=== PATIENT | male | born 1960 ===

== ENCOUNTER 2017-08-16 06:37 | Inpatient (IN) | payer BC, OTHER ==
[2017-08-16 06:38] VITALS: BMI 28.3
[2017-08-16 07:28] LABS: BASO # 0.01 K/mm3 (0.0-2.0); BASO % 0.1 % (0.0-3.0); EOS # 0.2 (0.0-0.7); EOS % 2.1 % (1.5-5.0); GRAN # 5.77 (1.4-6.5); GRAN % 68.9 % (50.0-68.0); HEMATOCRIT 37.2 % (42.0-52.0); LYMPH # 1.9 (1.2-3.4); LYMPH % 22.1 % (22.0-35.0); MEAN CELL VOLUME 89.9 fl (80.0-105.0); MEAN CORPUSCULAR HEMOGLOBIN 29.7 pg (25.0-35.0); MEAN CORPUSCULAR HGB CONC 33.1 g/dl (31.0-37.0); MONO # 0.6 (0.1-0.6); MONO % 6.8 % (1.0-6.0); RED CELL DISTRIBUTION WIDTH 13.7 % (11.5-14.5); WHITE BLOOD COUNT 8.4 10^3/ul (4.5-11.0)
[2017-08-16 07:38] LABS: INR 1.08 (0.93-1.08); PARTIAL THROMBOPLASTIN TIME 26.4 Seconds (23.7-30.8)
[2017-08-16 07:39] LABS: ALB/GLOB RATIO 1.3 (1.1-1.8); ALKALINE PHOSPHATASE 74 U/L (38-126); ALT/SGPT 55 U/L (7-56); AMYLASE 103 U/L (35-125); AST/SGOT 43 U/L (17-59); BILIRUBIN,TOTAL 0.9 mg/dL (0.2-1.3); BLOOD UREA NITROGEN 24 mg/dL (7-21); CALCIUM 9.3 mg/dL (8.4-10.5); CARBON DIOXIDE 28 mmol/L (21-33); CHLORIDE 104 mmol/L (98-107); GFR AFRICAN-AMERICAN > 60; GLUCOSE,RANDOM 119 mg/dL (70-110); LIPASE 209 U/L (23-300); POTASSIUM 4.5 mmol/L (3.6-5.0); SODIUM 142 mmol/L (132-148); TOTAL PROTEIN 7.5 g/dL (5.8-8.3)
--- NOTE | 2017-08-16 07:49 | ED PDOC ---
Arrival/HPI - General Chief Complaint: Chest Pain Time Seen by Provider: 08/16/17 07:01 Historian: Patient - History of Present Illness Narrative History of Present Illness (Text): 08/16/17 07:18 A 57 year old male, whose past medical history includes hypertension, presents to the emergency department complaining of intermittent, central, pressure-like chest pain. [place] [facility] [place] due to similar symptom but was of a different discomfort. Stress test resulted in normal findings. Patient states earlier today while he was awake, he began experiencing symptom and drove to the ER. However, symptom resolved before reaching hospital, so he went back home. Later on, is awoken by the chest discomfort and calls the ambulance. He mentions the pain resolved while on his way her in the ambulance and currently does not experience symptom at this time. Patient notes chest pain comes and goes, usually only occurring while he is at home during evenings but never at work. He also does not experience it when eating or drinking. Patient reports he has experienced mild chest pain in the past and has taken Tums for it, but this is much worse. Patient notes also experiencing nausea and sweating, but denies of any abdominal pain, chest pain, neck pain, shortness of breath, urinary output changes, leg swelling, or any other complaints. Also, patient mentions drinking four beers last night prior to symptoms occurring. PMD: Dr. Yandel Draper Time/Duration: Prior to Arrival Symptom Onset: Sudden Symptom Course: Intermittent Quality: Pressure Context: Home Past Medical History - Provider Review Nursing Documentation Reviewed: Yes - Infectious Disease Hx of Infectious Diseases: None - Cardiac Hx Cardiac Disorders: Yes Hx Hypertension: Yes Hx Pacemaker: No - Pulmonary Hx Respiratory Disorders: Yes Hx Emphysema: Yes - Neurological Hx Neurological Disorder: No - HEENT Hx HEENT Disorder: No - Renal Hx Renal Disorder: No - Endocrine/Metabolic Hx Endocrine Disorders: No - Hematological/Oncological Hx Blood Disorders: No - Integumentary Hx Dermatological Disorder: No - Musculoskeletal/Rheumatological Hx Falls: No - Gastrointestinal Hx Gastrointestinal Disorders: No - Genitourinary/Gynecological Hx Genitourinary Disorders: No - Psychiatric Hx Psychophysiologic Disorder: No Hx Emotional Abuse: No Hx Physical Abuse: No Hx Substance Use: No - Anesthesia Hx Anesthesia Reactions: No Hx Malignant Hyperthermia: No - Suicidal Assessment Feels Threatened In Home Enviroment: No Family/Social History - Physician Review Nursing Documentation Reviewed: Yes Family/Social History: No Known Family HX Smoking Status: Light Smoker < 10 Cigarettes Daily Hx Alcohol Use: No Hx Substance Use: No Allergies/Home Meds Allergies/Adverse Reactions: Allergies No Known Allergies Allergy (Verified 11/07/16 09:51) Home Medications: Home Meds Medication Instructions Recorded Confirmed Atorvastatin Calcium [Lipitor] 10 mg PO DAILY 11/16/15 08/16/17 amLODIPine [Norvasc] 5 mg PO DAILY 11/16/15 08/16/17 Aspirin [Ecotrin] 81 mg PO DAILY 12/17/15 08/16/17 Umeclidinium Brm/Vilanterol Tr 1 inh INH DAILY 11/07/16 08/16/17 [Anoro Ellipta 62.5-25 Mcg INH] Sacubitril/Valsartan [Entresto 24 1 tab PO BID 12/14/16 08/16/17 mg-26 mg Tablet] Review of Systems - Review of Systems Constitutional: Night Sweats Respiratory: absent: SOB Cardiovascular: Chest Pain (intermittent, central, pressure-like) Gastrointestinal: Nausea. absent: Abdominal Pain Musculoskeletal: absent: Back Pain, Neck Pain, Other (no leg swelling) Physical Exam - Physical Exam Narrative Physical Exam (Text): Head: Atraumatic. Normocephalic. Eyes: PERRL. EOMI. Conjunctivae are not pale. ENT: Mucous membranes are moist and intact. Oropharynx is clear and symmetric. Neck: Supple. Full ROM. No JVD. No lymphadenopathy. Cardiovascular: Regular rate. Regular rhythm. No murmurs, rubs, or gallops. Distal pulses are 2+ and symmetric. Pulmonary/Chest: No evidence of respiratory distress. Clear to auscultation bilaterally. No wheezing, rales or rhonchi. Abdominal: Soft and non-distended. There is no tenderness. No rebound, guarding, or rigidity. No organomegaly. Good bowel sounds. Back: No CVA tenderness. Extremities: No edema. No cyanosis. No clubbing. Full range of motion in all extremities. No calf tenderness. Skin: Skin is warm and dry. No petechiae. No purpura. Neurological: Alert, awake, and oriented to person, place, time, and situation. Normal speech. Psychiatric: Good eye contact. Normal interaction, affect, and behavior. Vital Signs Reviewed: Yes Vital Signs Temp Pulse Resp BP Pulse Ox 08/16/17 16:00 57 L 15 148/82 99 08/16/17 14:00 56 L 12 122/55 L 99 08/16/17 12:00 62 17 123/58 L 98 08/16/17 11:40 60 16 136/79 08/16/17 10:15 60 16 136/79 97 08/16/17 08:32 73 16 136/77 99 08/16/17 07:15 63 18 146/86 97 08/16/17 06:47 97.9 F 64 16 140/66 96 Temperature: Afebrile Blood Pressure: Normal Pulse: Regular Respiratory Rate: Normal Appearance: Positive for: Well-Appearing Pain Distress: None Mental Status: Positive for: Alert and Oriented X 3 Medical Decision Making ED Course and Treatment: 08/16/17 07:25 Impression: 57 year old male with intermittent, central, pressure-like chest pain. Differential Diagnosis included but are not limited to: Relfux vs. Coronary Artery Disease vs. Biliary Colic Plan: -- EKG -- Chest X-ray -- Abdominal Ultrasound -- Labs -- Urinalysis -- Reassess and disposition Prior Visits: Notes and results from previous visits were reviewed. Patient was last seen in the emergency department on 12/14/2016 for chest pain. Patient was admitted. Progress Notes: EKG: Ordered, reviewed, and independently interpreted the EKG. Rate : 51 BPM Rhythm : Sinus bradycardia Interpretation : Left axis deviation, non-specific intraventricular block. Comparison : No previous EKG for comparison. 08/16/17 09:47 Patient at this time is pain-free while in the emergency department. Treponin level is .04 in indeterminate range. As he has cardiac risk factors and persistent symptoms, patient will be placed under telemetry observation to on- call physician service. Treatment plan has been discussed with patient and he agrees to plan. 08/16/2017 10:43 Abdominal Ultrasound IMPRESSION: Somewhat limited study due to body habitus and bowel gas. Fatty infiltration however other infiltrative hepatocellular disease process not excluded. Dictator: Jovany Tierney DO 08/16/2017 12:12 Chest X-ray IMPRESSION: No active disease. Dictator: Jovany Tierney DO - Lab Interpretations Lab Results: 08/16/17 07:23 08/16/17 07:23 Lab Results 08/16/17 07:50: Urine Color Yellow, Urine Appearance Clear, Urine pH 7.0, Ur Specific [place] 1.010, Urine Protein Negative, Urine Glucose (UA) Negative, Urine Ketones Negative, Urine Blood Negative, Urine Nitrate Negative, Urine Bilirubin Negative, Urine Urobilinogen 0.2, Ur Leukocyte Esterase Negative 08/16/17 07:23: PT 11.7, INR 1.08, APTT 26.4 08/16/17 07:23: Sodium 142, Potassium 4.5, Chloride 104, Carbon Dioxide 28, Anion Gap 15, BUN 24 H, Creatinine 1.0, Est GFR ( Amer) > 60, Est GFR ( Non-Af Amer) > 60, Random Glucose 119 H, Calcium 9.3, Magnesium 2.0, Total Bilirubin 0.9, AST 43, ALT 55, Alkaline Phosphatase 74, Lactate Dehydrogenase 525, Total Creatine Kinase 163, Troponin I 0.04 D, Total Protein 7.5, Albumin 4.2, Globulin 3.3, Albumin/Globulin Ratio 1.3, Amylase 103, Lipase 209 08/16/17 07:23: WBC 8.4 D, RBC 4.14, Hgb 12.3 L, Hct 37.2 L, MCV 89.9, MCH 29.7 , MCHC 33.1, RDW 13.7, Plt Count 218, MPV 10.0, Gran % 68.9 H, Lymph % (Auto) 22.1, [place] % (Auto) 6.8 H, Eos % (Auto) 2.1, Baso % (Auto) 0.1, Gran # 5.77, Lymph # 1.9, [place] # 0.6, Eos # 0.2, Baso # 0.01 I have reviewed the lab results: Yes - RAD Interpretation Radiology Orders: 08/16/17 06:53 CHEST PORTABLE [RAD] Stat 08/16/17 07:40 ABDOMEN COMPLETE [US] Stat - EKG Interpretation EKG Interpretation (Text): 08/16/17 18:12 EKG at 0641 sinus bradycardia rate of 51 with left axis deviation, nonspecific intraventricular block Interpreted by ED Physician: Yes Type: 12 lead EKG - Medication Orders Current Medication Orders: Albuterol/Ipratropium (Duoneb 3 Mg/0.5 Mg (3 Ml) Ud) 3 ml IH [id number] PARAS Stop: 08/22/17 02:01 Aspirin (Ecotrin) 81 mg PO DAILY [facility] Last Admin: 08/16/17 10:31 Dose: Atorvastatin Calcium (Lipitor) 40 mg PO DAILY [facility] Last Admin: 08/16/17 10:03 Dose: 40 mg Clopidogrel Bisulfate (Plavix) 75 mg PO DAILY [facility] Last Admin: 08/16/17 10:03 Dose: 75 mg Enoxaparin Sodium (Lovenox) 40 mg SC DAILY [facility] PRN Reason: Protocol Last Admin: 08/16/17 10:03 Dose: 40 mg Subcutaneous Administrations Document 08/16/17 10:03 CNR (Rec: 08/16/17 10:04 CNR [id number] Injection Site MAR Injection Site Right Abdomen Charges for Administration # of Subcutaneous Administrations 1 Sodium Chloride (Sodium Chloride 0.9%) 1,000 mls @ 70 mls/hr IV .[id number] [facility] Last Admin: 08/16/17 10:04 Dose: 70 mls/hr eMAR Start Stop Document 08/16/17 10:04 CNR (Rec: 08/16/17 10:05 CNR [id number]) Intravenous Solution Start Date 08/16/17 Start Time 10:05 Nicotine (Nicoderm Cq) 1 patch TD DAILY [facility] Nitroglycerin (Nitro-Bid 2% Oint) 1 ea TOP Q6H [facility] Last Admin: 08/16/17 10:03 Dose: 1 ea Non-Formulary Medication (Umeclidinium Brm/Vilanterol Tr [Anoro Ellipta 62.5-25 Mcg Inh]) 1 inh INH DAILY [facility] Pantoprazole Sodium (Protonix Ec Tab) 40 mg PO 0600,1600 [facility] Last Admin: 08/16/17 10:03 Dose: 40 mg Discontinued Medications Aspirin (Aspirin Chewable) 81 mg PO STAT STA Stop: 08/16/17 09:41 Last Admin: 08/16/17 10:03 Dose: 81 mg Famotidine (Pepcid) 20 mg IVP STAT STA Stop: 08/16/17 07:30 Last Admin: 08/16/17 07:38 Dose: 20 mg IVP Administration Document 08/16/17 07:38 CNR (Rec: 08/16/17 07:39 [facility]NR [id number] Charges for Administration # of IVP Administrations 1 - Scribe Statement The provider has reviewed the documentation as recorded by the [place] Provider [place] Attestation: All medical record entries made by the Scribe were at my direction and personally dictated by me. I have reviewed the chart and agree that the record accurately reflects my personal performance of the history, physical exam, medical decision making, and the department course for this patient. I have also personally directed, reviewed, and agree with the discharge instructions and disposition. Disposition/Present on Arrival - Present on Arrival Any Indicators Present on Arrival: No History of DVT/PE: No History of Uncontrolled Diabetes: No Urinary Catheter: No History of Decub. Ulcer: No History Surgical Site Infection Following: None - Disposition Have Diagnosis and Disposition been Completed?: Yes Diagnosis: Chest pain Disposition: HOSPITALIZED Disposition Time: 09:00 Patient Plan: Admission, Observation, Telemetry Condition: FAIR
[2017-08-16 07:50] LABS: TROPONIN I 0.04 ng/mL
[2017-08-16 07:54] LABS: URINE APPEARANCE CLEAR (CLEAR); URINE BILIRUBIN NEGATIVE (NEGATIVE); URINE BLOOD NEGATIVE (NEGATIVE); URINE COLOR YELLOW (YELLOW); URINE GLUCOSE (UA) NEGATIVE (NEGATIVE); URINE KETONE NEGATIVE (NEGATIVE); URINE LEUKOCYTE ESTERASE NEGATIVE Leu/uL (NEGATIVE); URINE PROTEIN NEGATIVE mg/dL (<30 mg/dL); URINE UROBILINOGEN 0.2 E.U./dL (<1 E.U./dL)
[2017-08-16] MEDS ORDERED: Non Formulary Medication (Umeclidinium Brm/Vilanterol Tr [Anoro Ellipta 62.5-25 Mcg Inh] 1 INH SCH (10:00)
[2017-08-16] MEDS ORDERED: Enoxaparin 40 mg Syringe SC SCH (10:00)
[2017-08-16] MEDS: Nitroglycerin 2% Ointment Foilpak UD TOP SCH ×4 (10:03→23:41)
[2017-08-16] MEDS: Pantoprazole 40 mg EC Tab PO SCH ×2 (10:03→19:19)
[2017-08-16] MEDS: Sodium Chloride 0.9% 1,000 ML IV SCH (10:04)
--- NOTE | 2017-08-16 10:45 | US ---
HISTORY: upper abdominal pain COMPARISON: None. TECHNIQUE: Sonographic evaluation of the abdomen. FINDINGS: LIVER: Measures approximately 12.7 cm. Smooth contour and increased echogenicity of the liver parenchyma likely secondary to fatty infiltration however other infiltrative hepatocellular disease process not excluded. . No mass. No intrahepatic bile duct dilatation. GALLBLADDER: Unremarkable. No gallstones. No pericholecystic fluid collections or sonographic sign COMMON BILE DUCT: Measures approximately 4.5 mm. No stones. No dilatation. PANCREAS: Pancreas not visualized due to body habitus and bowel gas RIGHT KIDNEY: Measures 10.4 x 5.1 x 5.3cm. Normal echogenicity. No calculus, mass, or hydronephrosis. LEFT KIDNEY: Measures 12.1 x 5.6 x 5.7cm. Normal echogenicity. No calculus, mass, or hydronephrosis. SPLEEN: Normal in size and contour. No mass. AORTA: No aneurysmal dilatation. IVC: IVC not visualized due to body habitus and bowel gas. OTHER FINDINGS: None. IMPRESSION: Somewhat limited study due to body habitus and bowel gas. Fatty infiltration however other infiltrative hepatocellular disease process not excluded.
[2017-08-16 11:15] LABS: RETIC% 1.01 % (0.5-1.5)
[2017-08-16 11:25] LABS: CHOLESTEROL 136 mg/dL (130-200)
[2017-08-16 11:33] LABS: IRON 97 ug/dL (45-180)
[2017-08-16 11:39] LABS: TROPONIN I 0.05 ng/mL
[2017-08-16 11:45] LABS: FREE T4 1.08 ng/dL (0.78-2.19)
[2017-08-16 11:58] LABS: THYROID STIMULATING HORMONE 1.06 mIU/mL (0.46-4.68)
--- NOTE | 2017-08-16 12:13 | RAD ---
HISTORY: chest pain COMPARISON: Comparison chest 12/14/2016 FINDINGS: LUNGS: No active pulmonary disease. PLEURA: No significant pleural effusion identified, no pneumothorax apparent. CARDIOVASCULAR: Normal. OSSEOUS STRUCTURES: Mild multilevel degenerative spondylosis of the thoracic spine VISUALIZED UPPER ABDOMEN: Normal. OTHER FINDINGS: None. IMPRESSION: No active disease.
[2017-08-16 17:16] LABS: FOLATE > 20.0 ng/mL
[2017-08-16] MEDS: Albuterol-Ipratrop 3 mg / 0.5 (3 ml) UD IH SCH (19:07)
[2017-08-16] MEDS: Non Formulary Medication (Umeclidinium Brm/Vilanterol Tr [Anoro Ellipta 62.5-25 Mcg Inh] 1 INH SCH (19:18)
[2017-08-16 19:40] LABS: TROPONIN I 0.03 ng/mL
--- NOTE | 2017-08-16 21:53 | CT ---
EXAM: CT Chest Without Intravenous Contrast CLINICAL HISTORY: 57 years old, male; Abnormal findings; Lung mass or nodule; Not specified; Additional info: Pulmonary nodules TECHNIQUE: Axial computed tomography images of the chest without intravenous contrast. All CT scans at this facility use one or more dose reduction techniques, viz.: automated exposure control; ma/kV adjustment per patient size (including targeted exams where dose is matched to indication; i.e. head); or iterative reconstruction technique. MIP reconstructed images were created and reviewed. Coronal and sagittal reformatted images were created and reviewed. COMPARISON: LUNG SCREENING LDCT 10/19/2015 11:25:21 AM FINDINGS: Limitations: Lack of intravenous contrast. Lungs: Minimal atelectasis. No consolidation. Minimal bullous changes within apices. Several nodules, up to 0.7 cm, grossly stable allowing motion and difference in slice selection. Pleural space: No pneumothorax. No significant effusion. Heart: Borderline cardiomegaly. No significant pericardial effusion. Bones/joints: Mild degenerative changes of spine. No acute fracture. Soft tissues: Unremarkable. Vasculature: Mild atherosclerotic disease. Lymph nodes: No pathologically enlarged lymph nodes. IMPRESSION: 1. Pulmonary nodules, grossly stable. No follow-up is necessary for patients with low or high risk of malignancy. 2. Incidental/non-acute findings are described above.
[2017-08-17] MEDS: Sodium Chloride 0.9% 1,000 ML IV SCH ×2 (00:53→21:05)
[2017-08-17] MEDS: Albuterol-Ipratrop 3 mg / 0.5 (3 ml) UD IH SCH ×4 (03:20→21:30)
--- NOTE | 2017-08-17 04:48 | HP ---
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 The patient states that he was admitted to [facility] earlier last week or earlier this week and had a stress test with similar symptoms, but the patient denies. The patient said the chest pain is different than what he had. The results of a stress test, according to him, was normal but official report is pending. The states that the patient's chest pain, heaviness, tightness has been increasing in severity and frequency since his discharge from [facility] and the pain symptom was different than what he was admitted to the [facility] last week or earlier this week. The patient was brought to the Emergency Room today. According to the ER evaluation, the patient has complained of increasing retrosternal chest pain, pressure and tightness. The patient came to the Emergency Room via ambulance. At present, the patient was seen in stretcher #3 in the Emergency Room. The patient is lying in the bed. The patient denies any chest pain at this time. The patient admits to be actively using heroin till a few days ago, actively smoking and doing alcohol and had four drinks last night also. REVIEW OF SYSTEMS: Thirteen system review was done, pertinent positive and negative dictated above. CODE STATUS: FULL CODE. LIVING WILL ADVANCE DIRECTIVE: None. Height is 5 feet 5 inches. Weight is 170 pounds. BMI is 28.3. ALLERGIES: NONE. HOME MEDICATIONS: Amlodipine or Norvasc 5 mg daily, Anoro Ellipta 62.5-25 mcg 1 inhalation daily, Entresto 24/26 mg twice a day, Lipitor/atorvastatin 10 mg daily, aspirin 81 mg daily. SOCIAL HISTORY: Positive for active smoking, active alcohol use and active heroin use. The patient does admit that he has history of narcotic dependent because of the back pain, which he states that he is not using any narcotics. 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 FAMILY HISTORY: Positive for heart problem in the father. PAST MEDICAL AND SURGICAL HISTORY: History of hypertension, history of questionable COPD, asthma, history of dyslipidemia, history of normocytic anemia, history of prediabetes, history of pulmonary nodules on CAT scan done in 10/2015 showing multiple pulmonary nodules and multiple bilateral centrilobular emphysema, history of axillary lymphadenopathy, history of bilateral gynecomastia, history of left upper lobe partially calcified pleural base nodule 2 x 3 mm, history of right lower lobe 2 x 3 mm solid pulmonary nodule along the oblique fissure, history of 4 x 4 mm solid pulmonary nodule in the right lower lobe attached to the oblique fissure measuring 8 mm in craniocaudal dimension, history of 3.6 x 3 cm solid pulmonary nodule in the right middle lobe without speculation or calcification, history of 3.6 x 6.5 mm right middle lobe pulmonary nodule, noncalcified without any evidence of speculation associated with horizontal fissure and 3 mm in craniocaudal dimension, history of colonoscopy, history of colonic polyp, history of tubular adenoma of the descending colon polyp, history of left anterior hemiblock, history of questionable incomplete left bundle-branch block and interventricular conduction delay, history of chest pain, history of anxiety, history of nonischemic cardiomyopathy with ejection fraction of 40%, history of obesity, history of dyslipidemia, history of hypertension, history of questionable noncompliance, history of colonoscopy done in 12/2015 showing descending colon polyp status post resection x2. The patient was advised repeat colonoscopy in three years. The patient's past medical history is also significant for active alcohol, nicotine, and drug use. PHYSICAL EXAMINATION: GENERAL: The patient seen in stretcher #3 in the emergency room. The patient is lying in the bed. Interestingly, the patient does not make any eye contact during my examination and during the history and physical examination. VITAL SIGNS: T-max 97.9. Telemetry shows sinus rhythm, heart rate 62 to 63 to 73, blood pressure ranging from 140/66, 146/86, 136/77, 136/79, 123/58, respiration 16 to 18, O2 sat 96% to 98%. HEAD: Examination is normocephalic, atraumatic. EENT: Examination shows pinkish pale conjunctivae. Dry oral mucosa. NECK: No neck rigidity. CHEST: Kyphosis. LUNGS: Examination shows occasional rhonchi. CARDIOVASCULAR: Examination is S1, S2, regular rhythm. Questionable soft systolic murmur in left sternal border, left second intercostal space. ABDOMEN: Soft. Mild epigastric tenderness. No periumbilical tenderness. No costovertebral angle tenderness. GENITALIA: Male. RECTAL: Examination is deferred. EXTREMITIES: Shows no pitting. No calf tenderness. No Homans' sign. NEUROLOGIC: The patient is alert, awake, oriented x3. Cranial nerves II through XII grossly intact. Gait examination is not tested. MUSCULOSKELETAL: Examination shows a body mass index of 28.3. PSYCHIATRIC: Examination is negative for anxiety or depression. Negative for auditory and visual hallucination. Negative for suicidal, homicidal ideation. VASCULAR: Examination palpable pulses. DIAGNOSTICS: CBC shows a hemoglobin/hematocrit 12.3, 37.2. ESR is 33. Retic count is normal. PT/PTT is normal. Chemistry is significant for BUN of 24, glucose 119, magnesium 2. LFTs are normal. Troponin is 0.04 and 0.05. Cholesterol is 136, LDL 74, HDL 44. Amylase, lipase was negative. Thyroid profile, TSH 1.06, T4 10. Urine pH 7.0, specific gravity 1.010, rest of the urinalysis negative. Urine drug screen is positive for opiate and methadone. The patient has a chest x-ray done in the emergency room, which was reviewed. EKG shows sinus rhythm, left anterior hemiblock, questionable intraventricular conduction delay with incomplete left bundle-branch block. Chest x-ray shows degenerative spondylosis of the thoracic spine, no active disease. The patient had an abdominal ultrasound done for the symptoms of lower sternal chest pain, which was negative for any pathology except the patient was found to have fatty infiltration of the liver. The patient was seen in the Emergency Room by Dr. Quick. The patient was advised to be admitted to Telemetry observation for further testing and evaluation. IMPRESSION: 1. Chest pain, chest tightness, and chest pressure. 2. History of hypertension, history of emphysema, chronic obstructive pulmonary disease. 3. Active nicotine, alcohol, and heroin use. 4. Normocytic anemia. 5. Elevated erythrocyte sedimentation rate of 33. 6. Mild prerenal kidney injury. 7. Hyperglycemia with history of prediabetes. 8. Indeterminate troponin. 9. History of dyslipidemia. 10. Urine drug screen positive for opiates and methadone. 11. Thoracic spine multilevel degenerative spondylosis. 12. History of multiple pulmonary nodules on a CAT scan done in 10/2015. 13. Hepatic steatosis and fatty infiltration of the liver. 14. Left anterior hemiblock with questionable incomplete left bundle-branch block versus intraventricular conduction delay. 15. History of nonischemic cardiomyopathy. PLAN: At this time, the patient will be placed on telemetry observation. The patient has been ordered iron studies. The patient has been ordered repeat labs, serial cardiac enzymes, serial troponin. The patient has been ordered Cardiology evaluation. The patient has been treated in the Emergency Room with aspirin. The patient will be started on DuoNeb nebulizer every 6 hours, Ecotrin 81 mg daily. The patient will be started on test Lipitor 40 daily, Lovenox 40 mg subcu daily, nitro paste 1 inch q. 6, Plavix 75 daily, Protonix 40 mg twice a day. The patient was started on IV fluid 0.9 normal saline at 70 mL an hour. Anoro Ellipta has been resumed. The patient has been ordered a CT of the chest with contrast because of the history of pulmonary nodule. Repeat EKG ordered. Echo with Doppler ordered. Heart healthy diet ordered. Out of bed ordered. The patient will be also started on nicotine patch. The patient has been advised about cessation of smoking. The patient has been advised about cessation of alcohol and recreational and polysubstance drug abuse. The patient has been told about his diagnosis of mild anemia. The patient has been advised about strict compliance. The patient has been told about need for further cardiac workup if needed after Cardiology evaluation. The patient was advised about outpatient close followup with Cardiology, Pulmonary, Medicine and Gastroenterology. The patient is seen in stretcher #3 in the Emergency Room. Dictated and electronically signed, not read. Pacheco Alvarez MD
[2017-08-17] MEDS: Pantoprazole 40 mg EC Tab PO SCH ×2 (05:27→18:38)
[2017-08-17] MEDS: Nitroglycerin 2% Ointment Foilpak UD TOP SCH ×4 (05:27→23:25)
[2017-08-17 07:15] LABS: BASO # 0.02 K/mm3 (0.0-2.0); BASO % 0.2 % (0.0-3.0); EOS # 0.3 (0.0-0.7); EOS % 3.2 % (1.5-5.0); GRAN # 5.33 (1.4-6.5); GRAN % 58.6 % (50.0-68.0); HEMATOCRIT 35.8 % (42.0-52.0); LYMPH # 2.7 (1.2-3.4); LYMPH % 29.3 % (22.0-35.0); MEAN CELL VOLUME 88.4 fl (80.0-105.0); MEAN CORPUSCULAR HEMOGLOBIN 29.4 pg (25.0-35.0); MEAN CORPUSCULAR HGB CONC 33.2 g/dl (31.0-37.0); MEAN PLATELET VOLUME 9.8 fl (7.0-11.0); MONO # 0.8 (0.1-0.6); MONO % 8.7 % (1.0-6.0); RED CELL DISTRIBUTION WIDTH 13.4 % (11.5-14.5); WHITE BLOOD COUNT 9.1 10^3/ul (4.5-11.0)
[2017-08-17 07:49] LABS: ALB/GLOB RATIO 1.2 (1.1-1.8); ALKALINE PHOSPHATASE 77 U/L (38-126); ALT/SGPT 48 U/L (7-56); AST/SGOT 34 U/L (17-59); BILIRUBIN,DIRECT 0.2 mg/dL (0.0-0.4); BLOOD UREA NITROGEN 14 mg/dL (7-21); CALCIUM 8.5 mg/dL (8.4-10.5); CARBON DIOXIDE 25 mmol/L (21-33); CHLORIDE 108 mmol/L (98-107); GFR AFRICAN-AMERICAN > 60; GLUCOSE,RANDOM 98 mg/dL (70-110); MAGNESIUM 1.9 mg/dL (1.7-2.2); POTASSIUM 3.1 mmol/L (3.6-5.0); SODIUM 143 mmol/L (132-148); TOTAL PROTEIN 6.7 g/dL (5.8-8.3)
[2017-08-17] MEDS ORDERED: Potassium Chloride 40 mEq/30 ml LIQ UD PO ONE (07:58)
[2017-08-17] MEDS ORDERED: Enoxaparin 40 mg Syringe SC SCH (09:30)
[2017-08-17] MEDS: Thiamine 100 mg/ml Inj IV SCH (10:02)
[2017-08-17] MEDS: Enoxaparin 80 mg Syringe SC SCH ×2 (10:05→21:04)
[2017-08-17] MEDS: Non Formulary Medication (Umeclidinium Brm/Vilanterol Tr [Anoro Ellipta 62.5-25 Mcg Inh] 1 INH SCH (10:43)
[2017-08-17 11:33] LABS: HEMOGLOBIN 12.4 g/dL (13.2-17.1); RDW 14.1 % (11.0-15.0)
--- NOTE | 2017-08-17 12:26 | CARD ---
APPROVED REPORT EKG Measurement Heart [id number] <Conclusion> Sinus bradycardia Left axis deviation Nonspecific intraventricular block Abnormal ECG
--- NOTE | 2017-08-17 16:27 | CON ---
CARDIOLOGY CONSULTATION DATE: 08/17/2017 HISTORY OF PRESENT ILLNESS: The patient is a 57-year-old male, who presents with substernal chest discomfort. The patient's cardiac risk factors include hypertension and hypercholesterolemia. He also was an active smoker. He was told that he had a week heart on her previous stress test which was done supposedly recently at [facility] [place] The patient has been admitted multiple times for chest pain. His cardiac risk factors includes hypertension and hypercholesterolemia and history of smoking. SOCIAL HISTORY: Active smoker. The patient also uses heroin. REVIEW OF SYSTEMS: A 14-point review of systems was reviewed in detail. Other than his substernal chest pain, no other cardiac symptomatology is noted. No history of bleeding and no history of peptic ulcer disease. PHYSICAL EXAMINATION: VITAL SIGNS: Blood pressure 141/66, heart rate in the 60s. NECK: Negative JVD. LUNGS: Without rales. HEART: S1, S2. EXTREMITIES: Without edema. EKG shows normal sinus rhythm with nonspecific ST-T changes. LABORATORY: The troponins 0.04 and 0.05. BUN and creatinine unremarkable. The potassium is 3.1 and has been replaced. The hemoglobin is 11.9. IMPRESSION 1. Recurrent angina. 2. High probability for coronary artery disease. 3. Hypertension. 4. Hypercholesterolemia. 5. Opiate addiction. Given these findings, and high a probability for CAD, I have discussed the risks, benefits of cardiac catheterization with the patient in detail. He is agreeable. The patient was loaded with aspirin and Plavix and brought down to the pharmacy laboratory technician. ADDENDUM In the pharmacy laboratory technician, the patient became agitated and restless, was unable to lie on the stretcher. Apparently the patient's last heroin use with several days ago. It is likely that he might be withdrawing from his opiates. We will cancel this procedure and send the patient back to the floor where we will treat his opiate addiction and continue his antianginal medications which should include aspirin, beta-blockers and Lovenox. Vincent Felipe MD
--- NOTE | 2017-08-17 19:56 | CARD ---
APPROVED REPORT EKG Measurement Heart [id number] NC [id number] <Conclusion> Normal sinus rhythm Left axis deviation Nonspecific intraventricular block Abnormal ECG
[2017-08-18] MEDS: Albuterol-Ipratrop 3 mg / 0.5 (3 ml) UD IH SCH ×4 (02:18→19:49)
--- NOTE | 2017-08-18 04:41 | PN ---
DATE: 08/17/2017 LOCATION: The patient is seen in room 269, bed 2. SUBJECTIVE: The patient was seen by Cardiology, Dr. Felipe early this morning. The patient was evaluated by Cardiology. The patient was advised cardiac catheterization by Dr. Felipe, but when the patient reached the cardiac catheterization lab, the patient started becoming agitated and restless, was unable to lie down flat on the cardiac cath table after . Prior to that, the patient was given a loading dose of Plavix and aspirin, but in the cardiac laborer pie bakery, the patient is having withdrawal symptoms from his heroin which he has stopped taking a few days ago. So, the patient was sent back to the telemetry and the cardiac cath was canceled. OBJECTIVE: VITAL SIGNS: T-max afebrile, heart rate shows 60 to 70s. Normal sinus rhythm. Blood pressure averaging in the last 24 hours 138/69, 155/89, 141/60, and 129/60. Respiration 20. O2 sat is 98% to 99%. HEENT: Head examination; normocephalic and atraumatic. HEENT examination shows pinkish conjunctivae. Anicteric sclerae. No oropharyngeal lesion. NECK: No neck rigidity. CHEST: Kyphosis. LUNGS: Shows no rales, crackles, or wheezing. CARDIOVASCULAR: S1 and S2, regular rhythm. ABDOMEN: Soft. Positive bowel sounds. Mild epigastric tenderness. No costovertebral angle tenderness. GENITALIA: Male. RECTAL: Deferred. EXTREMITIES: Shows no pitting edema. No calf tenderness. No Homans sign. NEUROLOGIC: The patient is alert, awake, and oriented x3. He is able to move upper and lower extremity without assistance. The patient is slightly restless and attempt to sit up from the lying position and the patient appears to have some pressured speech. MUSCULOSKELETAL: Shows a body mass index of 28.4. DIAGNOSTIC DATA: On 08/17/2017; WBC 9.1, hemoglobin/hematocrit 11.9 and 35.8, and platelet 225, labs; potassium 3.1 and magnesium 1.9. LFTs are normal. Peak troponin is 0.05, down to 0.03. Urinalysis negative. The patient's H. pylori breath test is positive. EKG shows sinus rhythm, left anterior hemiblock, left axis deviation, intraventricular conduction delay versus incomplete left bundle-branch block. CAT scan of the chest was noted. IMPRESSION: 1. Chest pain versus unstable angina. 2. Recurrent angina. 3. Hypertension. 4. Nicotine, alcohol and polysubstance abuse and heroin abuse and dependence. 5. Heroin versus methadone withdrawal. 6. Normocytic anemia. 7. Elevated erythrocyte sedimentation rate. 8. Helicobacter pylori gastritis. 9. Hypokalemia. 10. Urine drug screen positive for methadone. 11. Helicobacter pylori gastritis. 12. Left anterior hemiblock. 13. Questionable incomplete left bundle-branch block versus intraventricular conduction delay. 14. Recurrent angina and chest pain. 15. Hypokalemia. 16. Atelectasis. 17. Apical bullous changes of the lung. 18. Multiple pulmonary nodule. 19. Degenerative joint disease of the spine. 20. Multiple pulmonary nodule 0.7 cm. 21. Hypokalemia. 22. Hypertension. 23. Normocytic anemia. 24. Hypokalemia. 25. Helicobacter pylori gastritis. PLAN: At this time, the patient is started on H. pylori treatment, amoxicillin, Biaxin and PPI. The patient is on aspirin 81 daily, Ativan 0.5 mg IV q.6 hours p.r.n., DuoNeb nebulizer q.6 hours, Ecotrin 81 mg daily, folic acid 1 mg daily, and Lipitor 40 mg daily. The patient was started on Lopressor 25 twice a day by Dr. Vincent Felipe. The patient is on Lovenox 70 mg subcutaneously q.12 hours, nicotine patch 21 mg daily, nitroglycerin paste 1 inch q.6, and Plavix 600 mg was given today. The patient is also on Plavix 75 mg daily. Potassium supplementation was ordered. Protonix 40 twice a day and IV fluid 0.9 normal saline at 70 mL an hour. The patient is Anoro Ellipta, thiamine 100 mg IV daily. Repeat EKG ordered. Echo ordered. At present, the patient is to be continued on telemetry until further evaluation by Cardiology and their recommendation. The patient will be continued on above therapeutic intervention and we will await further recommendation by Cardiology at this time. The patient has been counseled about cessation of smoking, alcohol and polysubstance abuse and drug use and heroin abuse. Dictated and electronically signed, not read. Pacheco Alvarez MD [facility] # [id number]
[2017-08-18] MEDS: Pantoprazole 40 mg EC Tab PO SCH ×2 (05:01→16:07)
[2017-08-18] MEDS: Nitroglycerin 2% Ointment Foilpak UD TOP SCH ×3 (05:01→17:34)
[2017-08-18] MEDS: Sodium Chloride 0.9% 1,000 ML IV SCH (05:02)
[2017-08-18 08:24] LABS: BASO # 0.03 K/mm3 (0.0-2.0); BASO % 0.4 % (0.0-3.0); EOS # 0.5 (0.0-0.7); EOS % 6.4 % (1.5-5.0); GRAN # 2.84 (1.4-6.5); GRAN % 37.4 % (50.0-68.0); HEMATOCRIT 36.8 % (42.0-52.0); LYMPH # 3.7 (1.2-3.4); LYMPH % 49.1 % (22.0-35.0); MEAN CORPUSCULAR HEMOGLOBIN 29.3 pg (25.0-35.0); MEAN CORPUSCULAR HGB CONC 32.6 g/dl (31.0-37.0); MEAN PLATELET VOLUME 9.6 fl (7.0-11.0); MONO # 0.5 (0.1-0.6); MONO % 6.7 % (1.0-6.0); RED CELL DISTRIBUTION WIDTH 13.8 % (11.5-14.5); WHITE BLOOD COUNT 7.6 10^3/ul (4.5-11.0)
[2017-08-18 08:34] LABS: ALB/GLOB RATIO 1.2 (1.1-1.8); ALKALINE PHOSPHATASE 75 U/L (38-126); ALT/SGPT 47 U/L (7-56); AST/SGOT 27 U/L (17-59); BILIRUBIN,DIRECT 0.2 mg/dL (0.0-0.4); BILIRUBIN,TOTAL 1.1 mg/dL (0.2-1.3); BLOOD UREA NITROGEN 12 mg/dL (7-21); CALCIUM 8.6 mg/dL (8.4-10.5); CARBON DIOXIDE 27 mmol/L (21-33); CHLORIDE 110 mmol/L (98-107); GFR AFRICAN-AMERICAN > 60; GLUCOSE,RANDOM 93 mg/dL (70-110); MAGNESIUM 2.1 mg/dL (1.7-2.2); POTASSIUM 3.8 mmol/L (3.6-5.0); SODIUM 145 mmol/L (132-148); TOTAL PROTEIN 6.7 g/dL (5.8-8.3)
[2017-08-18] MEDS: Thiamine 100 mg/ml Inj IV SCH (10:12)
[2017-08-18] MEDS: Enoxaparin 80 mg Syringe SC SCH (10:13)
[2017-08-18] MEDS: Non Formulary Medication (Umeclidinium Brm/Vilanterol Tr [Anoro Ellipta 62.5-25 Mcg Inh] 1 INH SCH (11:00)
--- NOTE | 2017-08-18 12:51 | PN ---
DATE: 08/18/2017 LOCATION: The patient is seen in room 269, bed 2. SUBJECTIVE: The patient is sitting up in the bed. The patient was made to stand up. The patient is much calm and relaxed today. The patient does not appear to have symptoms of withdrawal at present. Telemetry shows sinus bradycardia. PHYSICAL EXAMINATION: VITAL SIGNS: Today, the T-max is 98.8, heart rate in the 50s and 60s, blood pressure 124/70, 132/68, 133/74, respirations 20, O2 sat 98%. HEENT: Head examination is normocephalic and atraumatic. HEENT examination shows pinkish pale conjunctivae. Anicteric sclerae. No oropharyngeal lesion. No neck rigidity. CHEST EXAMINATION: Symmetrical. LUNGS: Examination shows no rales, crackles or wheezing. CARDIOVASCULAR EXAMINATION: S1, S2, regular rhythm. Questionable soft systolic murmur, right second intercostal space, left sternal border. ABDOMEN: Protuberant. Positive bowel sound. GENITALIA: Male. RECTAL: Deferred. EXTREMITIES: Shows no pitting edema, no calf tenderness, no Homans sign. NEUROLOGIC: The patient is alert, awake, and oriented x3. Cranial nerves II-XII limited. Gait examination is independent. MUSCULOSKELETAL: Examination shows a body mass index of 28. DIAGNOSTICS: WBC 7.6, hemoglobin/hematocrit 12 and 37, platelet 214. ESR 33. Sodium 145, potassium 3.8, chloride 110, CO2 27, anion gap 12, BUN 12, creatinine 1.0, GFR greater than 60, glucose 93, calcium 8.6, magnesium 2.1. LFTs are normal. Troponin is negative. Thyroid panel was reviewed, which is normal with the TSH of 1.06, T4 of 10. Echocardiogram done, results pending. EKG from today reviewed shows marked sinus bradycardia, left anterior hemiblock, intraventricular conduction delay with incomplete left bundle-branch block. IMPRESSION AND PLAN: 1. Chest pain. 2. Possible and probable angina. 3. History of nicotine, alcohol, and heroin, and methadone dependence. 4. Possible heroin withdrawal. 5. Iatrogenic bradycardia, probably secondary to beta-evangelista. 6. Normocytic anemia. 7. Elevated ESR of 33. 8. Hypokalemia. 9. Helicobacter pylori gastritis with H. Pylori breath test positive. 10. Atelectasis with bilateral apical bullous changes. 11. Pulmonary nodules of 0.7 cm. 12. Borderline cardiomegaly. 13. Degenerative joint disease of the spine. 14. Questionable history of noncompliance. 15. History of nicotine dependence. 16. Dyslipidemia. 17. Hypokalemia. PLAN: At this time, the patient was seen by Cardiology. The recommendation is that the patient will follow up with the patient's primary audio visual arts director for further cardiac workup, intervention, and testing. Cardiology does not recommend any further intervention at this time because of the patient's opiate and heroin and methadone withdrawal. The patient will be considered for possible discharge in next 24 to 48 hours if the patient stays stable. Dictated and electronically signed, not read. Pacheco Alvarez MD
--- NOTE | 2017-08-18 16:52 | PN ---
CARDIOLOGY FOLLOWUP DATE: 08/18/2017 SUBJECTIVE: The patient is asymptomatic. No shortness of breath. No chest pain. PHYSICAL EXAMINATION: VITAL SIGNS: Blood pressure varies from 124-150 systolic, heart rate in the 50s. NECK: Negative JVD. LUNGS: Without rales. HEART: Revealed S1 and S2. EXTREMITIES: Without edema. LABORATORY DATA: Hemoglobin is 12.6. Chemistries; BUN and creatinine unremarkable. IMPRESSION: 1. Stable angina. 2. High probability for coronary artery disease. 3. Hypertension. 4. Hypercholesterolemia. 5. Opiate addiction. PLAN: Given these findings, the patient is incapable undergoing a cardiac catheterization safely given his marked restlessness and unable to lie flat for the procedure. I have spoken with his stenographer secretary, his private stenographer secretary. The patient will be treated and will be followed up as an outpatient. We cannot add beta-blockers given his history of COPD. I have advised him stop smoking. The patient can be discharged on aspirin, statin therapy as well as Plavix. We will discontinue his IV heparin and subcu Lovenox at this time. We will discontinue telemetry. Vincent Felipe MD
[2017-08-18 17:18] LABS: HEMOGLOBIN F <1.0 Percent (<2.0)
--- NOTE | 2017-08-18 21:49 | CARD ---
APPROVED REPORT EXAM: Two-dimensional and M-mode echocardiogram with Doppler and color Doppler. INDICATION Chest Pain 2D DIMENSIONS Left Atrium (2D)3.8 (1.6-4.0cm)IVSd1.3 (0.7-1.1cm) LVDd5.1 (3.9-5.9cm)PWd1.2 (0.7-1.1cm) LVDs3.3 (2.5-4.0cm)FS (%) 35.0 % LVEF (%)64.0 (>50%) M-Mode DIMENSIONS Aortic Root3.90 (2.2-3.7cm)Aortic Cusp Exc.1.80 (1.5-2.0cm) Aortic Valve AoV Peak Vgmtsgah866.0cm/Suad Peak GR.8mmHg Mitral Valve MV E Fjldpgkz61.4cm/sMV A Fprjtbqw14.1cm/sE/A ratio1.2 TDI Lateral E' Peak V9.75cm/sMedial E' Peak V6.04cm/sE/Lateral E'8.5 E/Medial E'13.6 Pulmonary Valve PV Peak Vorsdejh32.2cm/sPV Peak Grad.2mmHg Tricuspid Valve TR Peak Wbwxxgfq325wu/sRAP KSFNYUBY02hrRwSD Peak Gr.19mmHg [id number] LEFT VENTRICLE The left ventricle is normal size. There is borderline concentric left ventricular hypertrophy. The left ventricular function is normal. The left ventricular ejection fraction is within the normal range. There is normal LV segmental wall motion. Transmitral Doppler flow pattern is Grade I-abnormal relaxation pattern. RIGHT VENTRICLE The right ventricle is normal size. There is normal right ventricular wall thickness. The right ventricular systolic function is normal. ATRIA The left atrium size is normal. The right atrium size is normal. AORTIC VALVE The aortic valve is normal in structure. There is trace aortic regurgitation. MITRAL VALVE The mitral valve is normal in structure. There is no mitral valve regurgitation noted. TRICUSPID VALVE The tricuspid valve is normal in structure. GREAT VESSELS The aortic root is mildly enlarged. PERICARDIAL EFFUSION There is no pericardial effusion. <Conclusion> The left ventricle is normal size. There is borderline concentric left ventricular hypertrophy. The left ventricular function is normal. The left ventricular ejection fraction is within the normal range. There is normal LV segmental wall motion. Transmitral Doppler flow pattern is Grade I-abnormal relaxation pattern. There is trace aortic regurgitation. The aortic root is mildly enlarged.
--- NOTE | 2017-08-18 22:13 | CARD ---
APPROVED REPORT EKG Measurement Heart [id number] <Conclusion> Marked sinus bradycardia Left axis deviation Nonspecific intraventricular block Abnormal ECG
[2017-08-19] MEDS: Albuterol-Ipratrop 3 mg / 0.5 (3 ml) UD IH SCH ×2 (01:29→07:21)
[2017-08-19] MEDS: Nitroglycerin 2% Ointment Foilpak UD TOP SCH ×2 (03:56→07:50)
[2017-08-19] MEDS ORDERED: Pantoprazole 40 mg EC Tab PO SCH (06:00)
[2017-08-19] MEDS: Thiamine 100 mg/ml Inj IV SCH (09:49)
[2017-08-19] MEDS: Non Formulary Medication (Umeclidinium Brm/Vilanterol Tr [Anoro Ellipta 62.5-25 Mcg Inh] 1 INH SCH (09:50)
[2017-08-19 11:37] VITALS: BP 165/90; PULSE 60; RESP 18; TEMP 98.6; O2SAT 99
--- NOTE | 2017-08-19 21:29 | CARD ---
APPROVED REPORT EKG Measurement Heart [id number] <Conclusion> Sinus bradycardia Left axis deviation Nonspecific intraventricular block Abnormal ECG
--- NOTE | 2017-08-20 06:49 | DS ---
BRIEF HISTORY AND HOSPITAL COURSE: The patient was seen in room 570, bed 2. The patient's overnight nurse's notes were reviewed. The patient slept well without any adverse events. The patient is seen lying in the bed. PHYSICAL EXAMINATION: VITAL SIGNS: T-max 98.6, heart rate 60, blood pressure 131/68 and 165/90, respirations 18, O2 sat 98%. HEENT: Head examination; normocephalic, atraumatic. HEENT examination shows pinkish conjunctivae. Anicteric sclerae. No oropharyngeal lesion. NECK: No neck rigidity. CHEST: Symmetrical. LUNGS: Shows no rales, crackles or wheezing. CARDIOVASCULAR: S1 and S2, regular rhythm. ABDOMEN: Soft. Positive bowel sounds. GENITALIA: Male. RECTAL: Deferred. EXTREMITIES: Shows no pitting, no calf tenderness, no Homans' sign. NEUROLOGIC: The patient is alert, awake, oriented x3. Cranial nerves II to XII intact. MUSCULOSKELETAL: . VASCULAR: Palpable pulses. DIAGNOSTICS: None from today. EKG from today shows bradycardia, left axis deviation, left anterior hemiblock with intraventricular conduction delay versus incomplete left bundle-branch block. The patient is seen by the clinical studies specialist. The patient's clinical studies specialist recommended, Dr. Felipe has communicated with his own primary clinical studies specialist and recommended that the patient should be followed up as an outpatient for possible evaluation for cardiac catheterization, which was explained to the patient. FINAL IMPRESSION AND PLAN AND DISCHARGE DIAGNOSES: 1. Chest pain. 2. Angina. 3. High probability for coronary artery disease. 4. Hypertension. 5. Dyslipidemia. 6. History of nicotine, alcohol, heroin and methadone dependence. 7. Possible heroin withdrawal. 8. Iatrogenic bradycardia secondary to beta-evangelista. 9. Normocytic anemia. 10. Elevated erythrocyte sedimentation rate. 11. Left ventricular ejection fraction 64%. 12. Right ventricular systolic pressure of 29 mmHg. 13. Concentric left ventricular hypertrophy with grade 1 abnormal relaxation pattern. 14. Trace aortic regurgitation. 15. Mildly enlarged aortic root. 16. Hypotension. 17. Sinus bradycardia, left anterior hemiblock and nonspecific intraventricular conduction block versus incomplete left bundle-branch block. Cardiology recommendation was reviewed, which was reinforced to the patient. The patient was advised and counseled about cessation of smoking, alcohol and polysubstance drug use. DISCHARGE MEDICATIONS: The patient is given amoxicillin 1000 mg twice a day for 14 days, aspirin 81 mg daily, Lipitor 10 mg daily, Biaxin 500 mg twice a day, Plavix 75 mg daily, folic acid 1 mg daily, nicotine patch 21 mg daily, Protonix 40 mg daily. The patient is on Entresto 1 tablet daily. The patient is on Anoro Ellipta 1 puff daily. The patient is discharged home. The patient is advised to follow up with PMD and own clinical studies specialist essentially and also advised the patient if he wishes, he can follow up with Dr. Alvarez within 1 week. Discharge medications as per updated ambulatory orders and new script. The patient will be given new script for discharge. The patient was advised to stop smoking, stop alcohol, stop heroin abuse, stop recreational drug use, stop methadone use, stop narcotic abuse. Dictated and electronically signed, not read. Pacheco Alvarez MD
== END 2017-08-19 11:52 | disposition home or self-care (01) | DRG 303 ==
LOC: ED 06:37 → ERH 09:47 → UNDOADMOB 09:54 → ERH 19:24 → 2RNO 20:53 → OBSVTOIN 08-17 14:50 → 5RSO 08-18 16:54
PROVIDERS: ADMIT Internal Medicine; ATTEND Internal Medicine
DX: I25.118 Atherosclerotic heart disease of native coronary artery with other forms of angina pectoris (principal); I42.9 Cardiomyopathy, unspecified; K76.0 Fatty (change of) liver, not elsewhere classified; F11.20 Opioid dependence, uncomplicated; J98.11 Atelectasis; I10 Essential (primary) hypertension; E78.5 Hyperlipidemia, unspecified; F17.200 Nicotine dependence, unspecified, uncomplicated; J43.9 Emphysema, unspecified; J44.9 Chronic obstructive pulmonary disease, unspecified; E87.6 Hypokalemia; E78.00 Pure hypercholesterolemia, unspecified; K29.70 Gastritis, unspecified, without bleeding; B96.81 Helicobacter pylori [H. pylori] as the cause of diseases classified elsewhere; D64.9 Anemia, unspecified; M47.9 Spondylosis, unspecified; Z68.28 Body mass index [BMI] 28.0-28.9, adult; Z79.82 Long term (current) use of aspirin; Z79.899 Other long term (current) drug therapy; Z72.89 Other problems related to lifestyle; R70.0 Elevated erythrocyte sedimentation rate; I44.7 Left bundle-branch block, unspecified; R91.8 Other nonspecific abnormal finding of lung field; F19.10 Other psychoactive substance abuse, uncomplicated; R00.1 Bradycardia, unspecified; T46.2X5A Adverse effect of other antidysrhythmic drugs, initial encounter; I51.7 Cardiomegaly; Z91.19 Patient's noncompliance with other medical treatment and regimen

== ENCOUNTER 2018-07-03 00:25 | Observation (INO) | payer BC, OTHER ==
[2018-07-03 01:07] LABS: ALB/GLOB RATIO 1.2 (1.1-1.8); ALT/SGPT 22 U/L (7-56); AST/SGOT 27 U/L (17-59); BLOOD UREA NITROGEN 21 mg/dL (7-21); CALCIUM 8.8 mg/dL (8.4-10.5); GFR NON-AFRICAN AMERICAN > 60
[2018-07-03 01:19] LABS: B-TYPE NATRIURETIC PEPTIDE 46.7 pg/mL (0-450); BASO # 0.03 K/mm3 (0.0-2.0); BASO % 0.4 % (0.0-3.0); EOS # 0.4 (0.0-0.7); GRAN # 2.51 (1.4-6.5); GRAN % 30.2 % (50.0-68.0); HEMOGLOBIN 12.9 g/dL (14.0-18.0); LYMPH # 4.7 (1.2-3.4); MEAN CELL VOLUME 89.9 fl (80.0-105.0); MEAN CORPUSCULAR HEMOGLOBIN 29.5 pg (25.0-35.0); MEAN CORPUSCULAR HGB CONC 32.8 g/dl (31.0-37.0); MONO # 0.7 (0.1-0.6); MONO % 8.4 % (1.0-6.0); RBC 4.37 10^6/uL (3.5-6.1); RED CELL DISTRIBUTION WIDTH 13.2 % (11.5-14.5); TROPONIN I < 0.01 ng/mL; WHITE BLOOD COUNT 8.3 10^3/ul (4.5-11.0)
--- NOTE | 2018-07-03 02:20 | ED PDOC ---
Arrival/HPI - General Chief Complaint: Chest Pain Time Seen by Provider: 07/03/18 00:31 Historian: Patient, Spouse - History of Present Illness Narrative History of Present Illness (Text): 07/03/18 02:20 A 58 year old male, whose past medical history includes chest pain, hypertension , Hypercholesterolemia, smoking and substance abuse, presents to the emergency department complaining of center chest pain since around 11 pm tonight. Patient reports experiencing associated difficulty breathing and a closing pressure. Pt notes this pain after snorting heroin. Patient's notes patient took x4 81mg tablets of Aspirin after chest pain. He denies any current pain now Patient denies any fever, chills, diarrhea, nausea, vomiting, urinary symptoms , back pain, neck pain, headache, dizziness, or any other complaints. PMD: Dr. Yandel Castañeda Time/Duration: 4-6 hours Symptom Onset: Sudden Symptom Course: Improving Quality: Pressure Activities at Onset: Light Context: Home Past Medical History - Provider Review Nursing Documentation Reviewed: Yes - Infectious Disease Hx of Infectious Diseases: None - Cardiac Hx Cardiac Disorders: Yes Hx Hypertension: Yes Hx Pacemaker: No - Pulmonary Hx Respiratory Disorders: Yes Hx Emphysema: Yes - Neurological Hx Neurological Disorder: No - HEENT Hx HEENT Disorder: No - Renal Hx Renal Disorder: No - Endocrine/Metabolic Hx Endocrine Disorders: No - Hematological/Oncological Hx Blood Disorders: No - Integumentary Hx Dermatological Disorder: No - Musculoskeletal/Rheumatological Hx Falls: No - Gastrointestinal Hx Gastrointestinal Disorders: No - Genitourinary/Gynecological Hx Genitourinary Disorders: No - Psychiatric Hx Psychophysiologic Disorder: No Hx Emotional Abuse: No Hx Physical Abuse: No Hx Substance Use: No - Anesthesia Hx Anesthesia: Yes Hx Anesthesia Reactions: No Hx Malignant Hyperthermia: No - Suicidal Assessment Feels Threatened In Home Enviroment: No Family/Social History - Physician Review Nursing Documentation Reviewed: Yes Family/Social History: Unknown Family HX Smoking Status: Light Smoker < 10 Cigarettes Daily Hx Alcohol Use: No Hx Substance Use: No Allergies/Home Meds Allergies/Adverse Reactions: Allergies No Known Allergies Allergy (Verified 07/03/18 00:43) Home Medications: Home Meds Medication Instructions Recorded Confirmed Atorvastatin Calcium [Lipitor] 10 mg PO DAILY 11/16/15 07/03/18 Umeclidinium Brm/Vilanterol Tr 1 inh INH DAILY 11/07/16 07/03/18 [Anoro Ellipta 62.5-25 Mcg INH] Sacubitril/Valsartan [Entresto 24 1 tab PO BID 12/14/16 07/03/18 mg-26 mg Tablet] Review of Systems - Physician Review All systems were reviewed & negative as marked: Yes - Review of Systems Constitutional: absent: Fevers, Night Sweats Respiratory: SOB. absent: Cough Cardiovascular: Chest Pain Gastrointestinal: absent: Abdominal Pain, Diarrhea, Nausea, Vomiting Genitourinary Male: absent: Urinary Output Changes Musculoskeletal: absent: Back Pain, Neck Pain Neurological: absent: Headache, Dizziness Physical Exam Vital Signs Reviewed: Yes Vital Signs Temp Pulse Resp BP Pulse Ox 07/03/18 02:41 50 L 16 129/81 100 07/03/18 00:25 97.9 F 52 L 16 115/63 92 L Temperature: Afebrile Blood Pressure: Hypotensive Pulse: Bradycardic Respiratory Rate: Normal Appearance: Positive for: Well-Appearing, Non-Toxic, Comfortable Pain Distress: None Mental Status: Positive for: Alert and Oriented X 3 - Systems Exam Head: Present: Atraumatic, Normocephalic Pupils: Present: PERRL Extroacular Muscles: Present: EOMI Conjunctiva: Present: Normal Mouth: Present: Moist Mucous Membranes Neck: Present: Normal Range of Motion Respiratory/Chest: Present: Clear to Auscultation, Good Air Exchange. No: Respiratory Distress, Accessory Muscle Use Cardiovascular: Present: Regular Rate and Rhythm, Normal S1, S2. No: Murmurs Abdomen: No: Tenderness, Distention, Peritoneal Signs Back: Present: Normal Inspection Upper Extremity: Present: Normal Inspection. No: Cyanosis, Edema Lower Extremity: Present: Normal Inspection. No: Edema Neurological: Present: GCS=15, CN II-XII Intact, Speech Normal Skin: Present: Warm, Dry, Normal Color. No: Rashes Psychiatric: Present: Alert, Oriented x 3, Normal Insight, Normal Concentration Medical Decision Making ED Course and Treatment: 07/03/18 02:20 Impression: 58 year old man presenting to the emergency department complaining of chest pain after heroin abuse. Given elevated Heart score pt will likely need to stay. Plan: -- EKG -- Chest X-Ray 2 views -- Reassess and disposition Prior Visits: Notes and results from previous visits were reviewed. Progress Notes: 07/03/18 02:20 EKG: Ordered, reviewed, and independently interpreted the EKG. Rate : 58 BPM Rhythm : Sinus bradycardia Interpretation : No ST-segment elevations or depressions. 07/03/18 02:47 XRay reviewed by me, shows no acute findings. Heart score Story: 1 Age: 1 RF: 2 EK Troponin: 0 Moderate heart score, will likely require obs and cards to see in am Appreciate consult w/ Dr. Blandon- to see pt. 07/03/18 03:34 Dr. Blandon accepts pt - Lab Interpretations Lab Results: 07/03/18 00:30 07/03/18 00:30 Lab Results 07/03/18 00:30: Sodium 146, Potassium 4.3, Chloride 107, Carbon Dioxide 29, Anion Gap 15, BUN 21, Creatinine 1.0, Est GFR ( Amer) > 60, Est GFR (Non- Af Amer) > 60, Random Glucose 187 H, Calcium 8.8, Magnesium 2.0, Total Bilirubin 0.5, AST 27, ALT 22, Alkaline Phosphatase 82, Troponin I < 0.01 D, NT -Pro-B Natriuret Pep 46.7, Total Protein 7.4, Albumin 4.0, Globulin 3.4, Albumin /Globulin Ratio 1.2 07/03/18 00:30: WBC 8.3, RBC 4.37, Hgb 12.9 L, Hct 39.3 L, MCV 89.9, MCH 29.5, MCHC 32.8, RDW 13.2, Plt Count 225, MPV 10.0, Gran % 30.2 L, Lymph % (Auto) 56.0 H, [place] % (Auto) 8.4 H, Eos % (Auto) 5.0, Baso % (Auto) 0.4, Gran # 2.51, Lymph # (Auto) 4.7 H, [place] # (Auto) 0.7 H, Eos # (Auto) 0.4, Baso # (Auto) 0.03 - RAD Interpretation Radiology Orders: 07/03/18 00:48 CHEST TWO VIEWS (PA/LAT) [RAD] Stat - Medication Orders Current Medication Orders: Aspirin (Aspirin Chewable) 81 mg PO DAILY PARAS Discontinued Medications Nitroglycerin (Nitrostat Sl Tab) 0.4 mg SL Q5M PRN PRN Reason: chest pain Stop: 07/03/18 03:56 - Scribe Statement The provider has reviewed the documentation as recorded by the Luis A Moore All medical record entries made by the Skyleribe were at my direction and personally dictated by me. I have reviewed the chart and agree that the record accurately reflects my personal performance of the history, physical exam, medical decision making, and the department course for this patient. I have also personally directed, reviewed, and agree with the discharge instructions and disposition. Disposition/Present on Arrival - Present on Arrival Any Indicators Present on Arrival: No History of DVT/PE: No History of Uncontrolled Diabetes: No Urinary Catheter: No History of Decub. Ulcer: No History Surgical Site Infection Following: None - Disposition Have Diagnosis and Disposition been Completed?: Yes Diagnosis: Chest pain Disposition Time: 04:02 Condition: GOOD Discharge Instructions (ExitCare): Chest Pain (ED)
[2018-07-03 02:41] VITALS: O2SAT 100
[2018-07-03] MEDS ORDERED: Albuterol-Ipratrop 3 mg / 0.5 (3 ml) UD IH PRN ×3 (03:56→05:43)
[2018-07-03] MEDS ORDERED: Oxycodone/Acetaminophen 5/325 mg Tab PO PRN (03:56)
[2018-07-03 05:21] VITALS: BMI 28.1
--- NOTE | 2018-07-03 05:35 | CP.PCM.HP ---
Addendum entered and electronically signed by James Aranda DO 07/03/18 05:51 : Plan should include Substance Abuse Heroin abuse 6 bags per day (snorts) UDS pending Educated patient on cessation Original Note: <James Aranda - Last Filed: 07/03/18 05:36> History of Present Illness - History of Present Illness History of Present Illness: PGY-1 H&P for Dr. Blandon's service CC: Could not breath, chest tightening HPI: Patient is a 58 year old male with PMH HTN, CAD, H. pylori gastritis, COPD who presents to hospital for evaluation of difficulty breathing a/w chest tightness. Patient is a poor historian and very drowsy. Patient states symptoms strated at midnight when he was laying in bed. He says the tightness is located in the epigastric region, 10/10, nonradiating, and steady in nature. Patient states he drank water and took a heartburn medicine to relieve symptoms however was offered only temporary relief. He admits to heroin use of up to 6 bags per day and denies any other drug use. Patient says his symptoms are not affecting him since he has been in the hospital. PMH- CAD, HTN, H. pylori (all from chart review, very poor historian), substance abuse PSH- Denies FH- Father (heart problems) Meds- Entresto 24-26mg tablet; Protonix 40mg, Folic acid 1mg po daily, Plavix 75mg po daily, lipitor 10mg po daily, plavix 75mg po daily, aspirin 81mg po daily [place]- NKDA Social- 28 pack year history; denies alcohol use but previous charts contradict patient story; heroin use (snort 6 bags/daily) PMD- Dr. Draper Code- Full code Present on Admission - Present on Admission Any Indicators Present on Admission: No Review of Systems - Constitutional Constitutional: absent: Chills, Fatigue, Headache - EENT Eyes: absent: Blurred Vision, Change in Vision Ears: absent: Dizziness - Cardiovascular Cardiovascular: Dyspnea. absent: Diaphoresis, Palpitations Additional comments: chest tightness - Respiratory Respiratory: Dyspnea. absent: Cough - Gastrointestinal Gastrointestinal: absent: Abdominal Pain, Constipation, Diarrhea, Nausea, Vomiting - Genitourinary Genitourinary: absent: Difficulty Urinating, Dysuria - Neurological Neurological: absent: Dizziness, Headaches, Weakness Past Patient History - Infectious Disease Hx of Infectious Diseases: None - Past Social History Smoking Status: Smoker Currrent Status Unknown - CARDIAC Hx Cardiac Disorders: Yes Hx Hypercholesterolemia: Yes Hx Hypertension: Yes Other/Comment: chest pain - PULMONARY Hx Respiratory Disorders: Yes Hx Emphysema: Yes - NEUROLOGICAL Hx Neurological Disorder: No - HEENT Hx HEENT Problems: No - RENAL Hx Kidney Stones: Yes - ENDOCRINE/METABOLIC Hx Endocrine Disorders: No - HEMATOLOGICAL/ONCOLOGICAL Hx Blood Disorders: No - INTEGUMENTARY Hx Dermatological Problems: No - MUSCULOSKELETAL/RHEUMATOLOGICAL Hx Falls: No - GASTROINTESTINAL Hx Gastrointestinal Disorders: No - GENITOURINARY/GYNECOLOGICAL Hx Genitourinary Disorders: No - PSYCHIATRIC Hx Anxiety: Yes Hx Physical Abuse: No Hx Substance Use: Yes (heroin) Other/Comment: substance abuse (heroin) Smoker - SURGICAL HISTORY Hx Surgeries: No - ANESTHESIA Hx Anesthesia: Yes Hx Anesthesia Reactions: No Hx Malignant Hyperthermia: No Meds Home Medications: Home Medication List Medication Instructions Recorded Confirmed Type Aspirin [Ecotrin] 81 mg PO DAILY #30 tabec 07/03/18 Rx Atorvastatin [Lipitor] 10 mg PO DAILY #30 tab 07/03/18 Rx Clopidogrel [Plavix] 75 mg PO DAILY #30 tab 07/03/18 Rx Folic Acid 1 mg PO DAILY #30 tab 07/03/18 Rx Sacubitril/Valsartan [Entresto 24 1 tab PO BID #60 tablet 07/03/18 Rx mg-26 mg Tablet] Tiotropium [Spiriva] 18 mcg IH DAILY #0 cap 07/03/18 Rx Allergies/Adverse Reactions: Allergies Allergy/AdvReac Type Severity Reaction Status Date / Time No Known Allergies Allergy Verified 07/03/18 00:43 Physical Exam - Constitutional Appears: Non-toxic, No Acute Distress Additional comments: appears drowsy - Head Exam Head Exam: NORMAL INSPECTION, NORMOCEPHALIC - Eye Exam Eye Exam: EOMI, Normal appearance. absent: Nystagmus, Scleral icterus - ENT Exam ENT Exam: Mucous Membranes Moist, Normal Exam - Neck Exam Neck exam: Positive for: Full Rom, Normal Inspection. Negative for: Lymphadenopathy, Tenderness, Thyromegaly - Respiratory Exam Respiratory Exam: Clear to Auscultation Bilateral. absent: Rales, Rhonchi, Wheezes - Cardiovascular Exam Cardiovascular Exam: Bradycardia, REGULAR RHYTHM, +S1, +S2 - GI/Abdominal Exam GI & Abdominal Exam: Normal Bowel Sounds, Soft. absent: Distended, Firm, Tenderness - Extremities Exam Extremities exam: Positive for: normal inspection. Negative for: calf tenderness, pedal edema - Back Exam Back exam: NORMAL INSPECTION. absent: tenderness - Neurological Exam Neurological exam: Alert, Oriented x3 - Psychiatric Exam Psychiatric exam: Normal Affect, Normal Mood - Skin Skin Exam: Intact, Normal Color Results - Vital Signs Recent Vital Signs: Last Vital Signs Temp 98.7 F 07/03/18 04:46 Pulse 49 L 07/03/18 04:46 Resp 18 07/03/18 04:46 BP 156/83 H 07/03/18 04:46 Pulse Ox 100 07/03/18 04:18 - Labs Result Diagrams: 07/03/18 00:30 07/03/18 00:30 Assessment & Plan - Assessment and Plan (Free Text) Assessment: Patient is a 58 yo male with PMH of CAD, HTN, H. pylori gastritis presents to hospital for evaluation of chest tightness and shortness of breath Plan: Chest tightness a/w SOB Cardio Consult- Dr. Felipe- recommendations appreciated NPO A1c pending; Lipid panel pending; TSH pending Repeat Tropsx2 and EKG pending Intial Trop negative; EKG shows T wave inversions in AVF and lead 4; changes from EKG en route in EMS Cxray- shows hyperinflation of lungs; no acute process noted- full read pending Tylenol 650mg po q6h prn Oxycodone 5mg po q8h prn HTN Sacubitril/Valsartan 24-26mg po bid CAD Lipitor 10mg po daily Plavix ?? patient poor historian- day team needs to confirm with pharmacy Hx of COPD Duonebs q2h prn Spiriva 18mcg IH daily Brovana 15mc IH [id number] PPX: DVT ppx: Lovenox 40mg sc daily GI ppx: Protonix 40mg po HS <Letty Blandon - Last Filed: 07/06/18 06:30> Results - Vital Signs Recent Vital Signs: Last Vital Signs Temp 98.2 F 07/03/18 12:00 Pulse 61 07/03/18 12:00 Resp 20 07/03/18 12:00 BP 172/94 H 07/03/18 12:00 Pulse Ox 100 07/03/18 05:42 - Labs Result Diagrams: 07/03/18 06:30 07/03/18 06:30 Attending/Attestation - Attestation I have personally seen and examined this patient.: Yes I have fully participated in the care of the patient.: Yes I have reviewed all pertinent clinical information: Yes
[2018-07-03 05:43] VITALS: RESP 20
[2018-07-03 07:51] LABS: TROPONIN I 0.05 ng/mL
[2018-07-03] MEDS ORDERED: Arformoterol 15 mcg/2 ml Inh Sol IH SCH (08:00)
[2018-07-03 08:06] LABS: BASO # 0.01 K/mm3 (0.0-2.0); BASO % 0.1 % (0.0-3.0); EOS # 0.2 (0.0-0.7); GRAN # 4.4 (1.4-6.5); GRAN % 59.6 % (50.0-68.0); HEMOGLOBIN 13.1 g/dL (14.0-18.0); LYMPH # 2.4 (1.2-3.4); LYMPH % 32.5 % (22.0-35.0); MEAN CELL VOLUME 89.5 fl (80.0-105.0); MEAN CORPUSCULAR HEMOGLOBIN 29.2 pg (25.0-35.0); MEAN CORPUSCULAR HGB CONC 32.6 g/dl (31.0-37.0); MEAN PLATELET VOLUME 10.7 fl (7.0-11.0); MONO # 0.4 (0.1-0.6); MONO % 5.8 % (1.0-6.0); RBC 4.49 10^6/uL (3.5-6.1); RED CELL DISTRIBUTION WIDTH 13.2 % (11.5-14.5); WHITE BLOOD COUNT 7.4 10^3/ul (4.5-11.0)
[2018-07-03 08:13] LABS: ALB/GLOB RATIO 1.1 (1.1-1.8); ALBUMIN 3.8 g/dL (3.0-4.8); ALT/SGPT 24 U/L (7-56); AST/SGOT 27 U/L (17-59); BLOOD UREA NITROGEN 18 mg/dL (7-21); CALCIUM 9.1 mg/dL (8.4-10.5); GFR NON-AFRICAN AMERICAN > 60
--- NOTE | 2018-07-03 09:19 | RAD ---
HISTORY: chest pain COMPARISON: Chest x-ray performed 08/16/17 TECHNIQUE: Chest PA and lateral FINDINGS: LUNGS: No focal consolidation. Please note that chest x-ray has limited sensitivity for the detection of pulmonary masses. PLEURA: No significant pleural effusion identified. No definite pneumothorax . CARDIOVASCULAR: Heart size appears within normal limits. OSSEOUS STRUCTURES: Degenerative changes of the spine. VISUALIZED UPPER ABDOMEN: Unremarkable. OTHER FINDINGS: None. IMPRESSION: No focal consolidation, significant pleural effusion, or definite pneumothorax identified.
[2018-07-03] MEDS ORDERED: SACUBITRIL 24mg/VALSARTAN 26mg tab PO SCH ×2 (10:00)
[2018-07-03] MEDS ORDERED: Tiotropium 18 mcg Cap For Inhalation IH SCH (10:00)
[2018-07-03] MEDS ORDERED: Enoxaparin 40 mg Syringe SC SCH (11:00)
[2018-07-03 14:18] VITALS: BP 172/94; PULSE 61; TEMP 98.2
[2018-07-03 19:04] LABS: BARBITURATES, UR NEGATIVE (NEGATIVE); BENZODIAZEPINES, UR NEGATIVE (NEGATIVE); OPIATES, UR POSITIVE (NEGATIVE); PHENCYCLIDINE, UR NEGATIVE (NEGATIVE)
--- NOTE | 2018-07-03 21:30 | CP.PCM.DIS ---
<Jules Suazo - Last Filed: 07/03/18 21:24> Provider - Provider Date of Admission: 07/03/18 03:27 Attending physician: Magalie Blanchard DO Primary care physician: Yandel Draper MD Consults: Cardiology - Dr. Barros Time Spent in preparation of Discharge (in minutes): 45 Hospital Course - Lab Results Lab Results: Most Recent Lab Values WBC 7.4 10^3/ul (4.5-11.0) 07/03/18 06:30 RBC 4.49 10^6/uL (3.5-6.1) 07/03/18 06:30 Hgb 13.1 g/dL (14.0-18.0) L 07/03/18 06:30 Hct 40.2 % (42.0-52.0) L 07/03/18 06:30 MCV 89.5 fl (80.0-105.0) 07/03/18 06:30 MCH 29.2 pg (25.0-35.0) 07/03/18 06:30 MCHC 32.6 g/dl (31.0-37.0) 07/03/18 06:30 RDW 13.2 % (11.5-14.5) 07/03/18 06:30 Plt Count 213 10^3/uL (120.0-450.0) 07/03/18 06:30 MPV 10.7 fl (7.0-11.0) 07/03/18 06:30 Gran % 59.6 % (50.0-68.0) 07/03/18 06:30 Lymph % (Auto) 32.5 % (22.0-35.0) 07/03/18 06:30 [place] % (Auto) 5.8 % (1.0-6.0) 07/03/18 06:30 Eos % (Auto) 2.0 % (1.5-5.0) 07/03/18 06:30 Baso % (Auto) 0.1 % (0.0-3.0) 07/03/18 06:30 Gran # 4.40 (1.4-6.5) 07/03/18 06:30 Lymph # (Auto) 2.4 (1.2-3.4) 07/03/18 06:30 [place] # (Auto) 0.4 (0.1-0.6) 07/03/18 06:30 Eos # (Auto) 0.2 (0.0-0.7) 07/03/18 06:30 Baso # (Auto) 0.01 K/mm3 (0.0-2.0) 07/03/18 06:30 D-Dimer, Quantitative < 200 ng/mlDDU (0-243) 07/03/18 12:10 Sodium 145 mmol/L (132-148) 07/03/18 06:30 Potassium 3.9 mmol/L (3.6-5.0) 07/03/18 06:30 Chloride 106 mmol/L (98-107) 07/03/18 06:30 Carbon Dioxide 28 mmol/L (21-33) 07/03/18 06:30 Anion Gap 15 (10-20) 07/03/18 06:30 BUN 18 mg/dL (7-21) 07/03/18 06:30 Creatinine 0.9 mg/dl (0.8-1.5) 07/03/18 06:30 Est GFR ( Amer) > 60 07/03/18 06:30 Est GFR (Non-Af Amer) > 60 07/03/18 06:30 Random Glucose 90 mg/dL (70-110) 07/03/18 06:30 Calcium 9.1 mg/dL (8.4-10.5) 07/03/18 06:30 Phosphorus 3.8 mg/dL (2.5-4.5) 07/03/18 06:30 Magnesium 2.0 mg/dL (1.7-2.2) 07/03/18 06:30 Total Bilirubin 0.7 mg/dL (0.2-1.3) 07/03/18 06:30 AST 27 U/L (17-59) 07/03/18 06:30 ALT 24 U/L (7-56) 07/03/18 06:30 Alkaline Phosphatase 85 U/L (38-126) 07/03/18 06:30 Troponin I 0.03 ng/mL D 07/03/18 12:10 NT-Pro-B Natriuret Pep 46.7 pg/mL (0-450) 07/03/18 00:30 Total Protein 7.2 g/dL (5.8-8.3) 07/03/18 06:30 Albumin 3.8 g/dL (3.0-4.8) 07/03/18 06:30 Globulin 3.4 gm/dL 07/03/18 06:30 Albumin/Globulin Ratio 1.1 (1.1-1.8) 07/03/18 06:30 Triglycerides 104 mg/dL (35-160) 07/03/18 06:30 Cholesterol 136 mg/dL (130-200) 07/03/18 06:30 LDL Cholesterol Direct 70 mg/dL (0-129) 07/03/18 06:30 HDL Cholesterol 46 mg/dL (29-60) 07/03/18 06:30 TSH 3rd Generation 1.25 mIU/mL (0.46-4.68) 07/03/18 06:30 Urine Opiates Screen Positive (NEGATIVE) H 07/03/18 17:53 Urine Methadone Screen Negative (NEGATIVE) 07/03/18 17:53 Ur Barbiturates Screen Negative (NEGATIVE) 07/03/18 17:53 Ur Phencyclidine Scrn Negative (NEGATIVE) 07/03/18 17:53 Ur Amphetamines Screen Negative (NEGATIVE) 07/03/18 17:53 U Benzodiazepines Scrn Negative (NEGATIVE) 07/03/18 17:53 U Oth Cocaine Metabols Positive (NEGATIVE) H 07/03/18 17:53 U Cannabinoids Screen Negative (NEGATIVE) 07/03/18 17:53 - Hospital Course Hospital Course: Jules Suazo DO PGY-1, Cnc Maintenance Technician Medicine Discharge Summary 58 year old male with PMH HTN, CAD, H. pylori gastritis, COPD who presented to hospital on 07/03/18 for evaluation of difficulty breathing a/w chest tightness. Patient was a poor historian and very drowsy. Patient stated symptoms started at midnight when he was laying in bed. Stated the tightness was located in the epigastric region, 10/10, nonradiating, and steady in nature. Patient stated he drank water and took a heartburn medicine to relieve symptoms however was offered only temporary relief. He admitted to heroin use of up to 6 bags per day and denied any other drug use. Patient stated his symptoms are not affecting him since he had been in the hospital. Troponins were neg x3, EKG demonstrated no acute ST-T changes, and pt was bradycardic during admission without symptoms. Cardiology was consulted, who cleared pt for discharge and outpatient follow-up with his primary pumper gager apprentice, Dr. Salmeron, within 1-2 weeks. Pt was also instructed on discharge to follow-up with his primary care doctor (Dr. Draper) within 1 week of discharge. Pt was sent refills of his home cardiac medications to his pharmacy until seen by his PCP after discharge. Pt was understanding of course of treatment and stated he would be compliant and follow-up outpatient with his treatment team. Discharge Exam - Head Exam Head Exam: NORMAL INSPECTION, NORMOCEPHALIC - Eye Exam Eye Exam: EOMI, Normal appearance, PERRL - ENT Exam ENT Exam: Mucous Membranes Moist - Cardiovascular Exam Cardiovascular Exam: Bradycardia, +S1, +S2. absent: Gallop, Rubs - GI/Abdominal Exam GI & Abdominal Exam: Normal Bowel Sounds, Soft, Unremarkable - Extremities Exam Extremities exam: full ROM, normal capillary refill, normal inspection, pedal pulses present - Neurological Exam Neurological exam: Alert, CN II-XII Intact, Normal Gait, Oriented x3, Reflexes Normal - Psychiatric Exam Psychiatric exam: Normal Affect, Normal Mood - Skin Skin Exam: Dry, Intact, Normal Color, Warm Discharge Plan - Discharge Medications Prescriptions: Aspirin [Ecotrin] 81 mg PO DAILY #30 tabec Atorvastatin [Lipitor] 10 mg PO DAILY #30 tab Clopidogrel [Plavix] 75 mg PO DAILY #30 tab Folic Acid 1 mg PO DAILY #30 tab Sacubitril/Valsartan [Entresto 24 mg-26 mg Tablet] 1 tab PO BID #60 tablet - Follow Up Plan Condition: GOOD Disposition: HOME/ ROUTINE Instructions: Chest Pain (DC), Chest Pain (GEN) Additional Instructions: Please follow-up with your primary care physician (Dr. Draper) within 1 week of discharge. Please follow-up with your primary pumper gager apprentice (Dr. Salmeron) within 1-2 weeks of discharge. Please resume home medications as prescribed. Please setup technician prescriptions sent to your pharmacy for refills of your home medications. Should symptoms recur or worsen, please go to your primary care physician's office or go to your nearest emergency department. Referrals: Yandel Draper [Primary Care Provider] - Follow up with primary Navjot Salmeron MD [Medical Doctor] - <Kumar Bautista - Last Filed: 07/03/18 22:08> Provider - Provider Date of Admission: 07/03/18 03:27 Attending physician: Magalie Blanchard DO Primary care physician: Yandel Draper MD Hospital Course - Lab Results Lab Results: Most Recent Lab Values WBC 7.4 10^3/ul (4.5-11.0) 07/03/18 06:30 RBC 4.49 10^6/uL (3.5-6.1) 07/03/18 06:30 Hgb 13.1 g/dL (14.0-18.0) L 07/03/18 06:30 Hct 40.2 % (42.0-52.0) L 07/03/18 06:30 MCV 89.5 fl (80.0-105.0) 07/03/18 06:30 MCH 29.2 pg (25.0-35.0) 07/03/18 06:30 MCHC 32.6 g/dl (31.0-37.0) 07/03/18 06:30 RDW 13.2 % (11.5-14.5) 07/03/18 06:30 Plt Count 213 10^3/uL (120.0-450.0) 07/03/18 06:30 MPV 10.7 fl (7.0-11.0) 07/03/18 06:30 Gran % 59.6 % (50.0-68.0) 07/03/18 06:30 Lymph % (Auto) 32.5 % (22.0-35.0) 07/03/18 06:30 [place] % (Auto) 5.8 % (1.0-6.0) 07/03/18 06:30 Eos % (Auto) 2.0 % (1.5-5.0) 07/03/18 06:30 Baso % (Auto) 0.1 % (0.0-3.0) 07/03/18 06:30 Gran # 4.40 (1.4-6.5) 07/03/18 06:30 Lymph # (Auto) 2.4 (1.2-3.4) 07/03/18 06:30 [place] # (Auto) 0.4 (0.1-0.6) 07/03/18 06:30 Eos # (Auto) 0.2 (0.0-0.7) 07/03/18 06:30 Baso # (Auto) 0.01 K/mm3 (0.0-2.0) 07/03/18 06:30 D-Dimer, Quantitative < 200 ng/mlDDU (0-243) 07/03/18 12:10 Sodium 145 mmol/L (132-148) 07/03/18 06:30 Potassium 3.9 mmol/L (3.6-5.0) 07/03/18 06:30 Chloride 106 mmol/L (98-107) 07/03/18 06:30 Carbon Dioxide 28 mmol/L (21-33) 07/03/18 06:30 Anion Gap 15 (10-20) 07/03/18 06:30 BUN 18 mg/dL (7-21) 07/03/18 06:30 Creatinine 0.9 mg/dl (0.8-1.5) 07/03/18 06:30 Est GFR ( Amer) > 60 07/03/18 06:30 Est GFR (Non-Af Amer) > 60 07/03/18 06:30 Random Glucose 90 mg/dL (70-110) 07/03/18 06:30 Calcium 9.1 mg/dL (8.4-10.5) 07/03/18 06:30 Phosphorus 3.8 mg/dL (2.5-4.5) 07/03/18 06:30 Magnesium 2.0 mg/dL (1.7-2.2) 07/03/18 06:30 Total Bilirubin 0.7 mg/dL (0.2-1.3) 07/03/18 06:30 AST 27 U/L (17-59) 07/03/18 06:30 ALT 24 U/L (7-56) 07/03/18 06:30 Alkaline Phosphatase 85 U/L (38-126) 07/03/18 06:30 Troponin I 0.03 ng/mL D 07/03/18 12:10 NT-Pro-B Natriuret Pep 46.7 pg/mL (0-450) 07/03/18 00:30 Total Protein 7.2 g/dL (5.8-8.3) 07/03/18 06:30 Albumin 3.8 g/dL (3.0-4.8) 07/03/18 06:30 Globulin 3.4 gm/dL 07/03/18 06:30 Albumin/Globulin Ratio 1.1 (1.1-1.8) 07/03/18 06:30 Triglycerides 104 mg/dL (35-160) 07/03/18 06:30 Cholesterol 136 mg/dL (130-200) 07/03/18 06:30 LDL Cholesterol Direct 70 mg/dL (0-129) 07/03/18 06:30 HDL Cholesterol 46 mg/dL (29-60) 07/03/18 06:30 TSH 3rd Generation 1.25 mIU/mL (0.46-4.68) 07/03/18 06:30 Urine Opiates Screen Positive (NEGATIVE) H 07/03/18 17:53 Urine Methadone Screen Negative (NEGATIVE) 07/03/18 17:53 Ur Barbiturates Screen Negative (NEGATIVE) 07/03/18 17:53 Ur Phencyclidine Scrn Negative (NEGATIVE) 07/03/18 17:53 Ur Amphetamines Screen Negative (NEGATIVE) 07/03/18 17:53 U Benzodiazepines Scrn Negative (NEGATIVE) 07/03/18 17:53 U Oth Cocaine Metabols Positive (NEGATIVE) H 07/03/18 17:53 U Cannabinoids Screen Negative (NEGATIVE) 07/03/18 17:53 Attending/Attestation - Attestation I have personally seen and examined this patient.: Yes I have fully participated in the care of the patient.: Yes I have reviewed all pertinent clinical information, including history, physical exam and plan: Yes Notes (Text): 07/03/18 22:07 Patient seen and examined at bedside. Vitals, labs, notes and consultation reviewed. Agreew tih the discharge plan as discussed and outlined by the resident.
[2018-07-03] MEDS ORDERED: Pantoprazole 40 mg EC Tab PO SCH (22:00)
--- NOTE | 2018-07-04 00:03 | CON ---
Copied To: Doroteo Barros MD Attending MD: Doroteo Barros MD DATE: 07/03/2018 CARDIOLOGY CONSULTATION REASON FOR CONSULTATION: Chest pain. HISTORY OF PRESENT ILLNESS: When I went to interview the patient and asked him why did he come to the hospital, he stated that, I do not remember why and at that point, I had to refer to the hospital records and the emergency room evaluation that stated that the patient is 58 years old male with past medical history includes chest pain, hypertension, hypercholesterolemia, smoking, substance abuse, presented because of chest pain around 11 p.m. last night. At the time of my evaluation, the patient denies any chest pain and denies any history of heart attack in the past. SOCIAL HISTORY: The patient is a smoker and marijuana abuser. MEDICATIONS: Aspirin 81 mg once a day, Brovana 15 mcg inhalation every 12 hours, folic acid 1 mg once a day, Lipitor 10 mg once a day, Lovenox 40 mg subcutaneous daily, Nicoderm patch, Protonix 40 mg twice a day. PHYSICAL EXAMINATION: GENERAL: The patient is a middle-aged female who does not appear to be any distress. VITAL SIGNS: Blood pressure 150/85, heart rate 66, temperature 98.5, respiration 20. HEENT: Normocephalic. CHEST: Clear. HEART: Sounds are regular. EXTREMITIES: No edema. LABORATORY DATA: SMA-7 today's is within normal limits. Two sets of troponin's are negative. Lipid profile is within normal limits. TSH level is within normal limits. D-dimer is within normal limits. Hemoglobin and hematocrit is 15.1 and 40.2. White count and platelet count are within normal limits. EKG revealed sinus rhythm, nonspecific intraventricular conduction delay, nonspecific T-wave changes. Although, the computer reading was considered anterior ischemia which I disagree. Chest x-ray was unremarkable. Echocardiographic study performed in August of last year revealed borderline concentric LVH with normal ejection fraction, mildly enlarged aortic root. ASSESSMENT: 1. Chest pain, myocardial infarction ruled out. 2. History of marijuana abuse according to the patient. RECOMMENDATIONS: Continue current aspirin, Lipitor, Nicoderm patch, albuterol and Spiriva. The patient can be discharged from the cardiac point of view for an outpatient stress test. Doroteo Barros MD
--- NOTE | 2018-07-04 05:10 | CARD ---
APPROVED REPORT Date of service: 07/03/2018 EKG Measurement Heart [id number] <Conclusion> Marked sinus bradycardia Left axis deviation Nonspecific intraventricular block Abnormal ECG
--- NOTE | 2018-07-04 05:15 | CARD ---
APPROVED REPORT Date of service: 07/03/2018 EKG Measurement Heart [id number] <Conclusion> Sinus bradycardia Left axis deviation Nonspecific intraventricular block T wave abnormality, consider anterior ischemia Abnormal ECG
== END 2018-07-03 14:58 | disposition home or self-care (01) ==
LOC: ED 00:25 → ERH 03:27 → 2RSO 04:37
PROVIDERS: ADMIT Hospitalist; ATTEND Hospitalist
DX: R07.9 Chest pain, unspecified (principal); F11.10 Opioid abuse, uncomplicated; E78.00 Pure hypercholesterolemia, unspecified; F12.10 Cannabis abuse, uncomplicated; F17.200 Nicotine dependence, unspecified, uncomplicated; I10 Essential (primary) hypertension; I25.10 Atherosclerotic heart disease of native coronary artery without angina pectoris; J43.9 Emphysema, unspecified; K29.70 Gastritis, unspecified, without bleeding; B96.81 Helicobacter pylori [H. pylori] as the cause of diseases classified elsewhere; Z79.02 Long term (current) use of antithrombotics/antiplatelets; Z79.82 Long term (current) use of aspirin; Z87.442 Personal history of urinary calculi
CPT/HCPCS: 71046; 80053; 80061; 83036; 83735; 83880; 84100; 84443; 84484; 85025; 85378; 93005; 94640; 96372; 96374; 99285; G0378; G0480; J1650; J2060